=== PATIENT | female | born 1930 | race Caucasian/White ===

== ENCOUNTER 2017-03-25 11:39 | Inpatient (IN) | payer MEDICARE, MEDICAID ==
[~2017-03-25] VITALS: Ht 167.6 cm; Wt 86.2 kg
[~2017-03-25 11:39] MED LIST: AMIODARONE HCL400 M1 ORAL; ASPIR-LOW81 MG PO; DIOVAN80 MG PO; FOLIC ACID1 MG PO; GLUCOPHAGE500 MG PO; KLONOPIN0.5 MG ORAL; LANOXIN125 MCG PO; METOLAZONE2.5 MG PO; METOPROLOL TART50 M1 ORAL; NIACIN100 MG PO; NORVASC5 MG PO; PRADAXA150 MG PO; TENORMIN25 MG PO; ZETIA10 MG PO
--- NOTE | 2017-03-25 11:53 | Emergency Room Report ---
History of Present Illness General Chief Complaint: Generalized Weakness Source: Patient, EMS Present Illness HPI Patient is a 87-year-old female brought in by EMS after increased generalized weakness. The patient gradual onset of symptoms. She had recently been started on medications after flulike episode. Patient reports having prior history of heart palpitations. She had prior history of atrial fibrillation. She denies any fever . She reports being followed by Dr. Haleigh Bonner and Dr. Walter Ndiaye. Allergies: Coded Allergies: No Known Allergies (Unverified , 05/28/12) Patient History Past Medical History: see triage record Reviewed Nursing Documentation: PMH: Agreed, PSxH: Agreed Nursing Documentation-PMH Hx Cardiac Problems: Yes - "Arrhythmia"; high cholesterol Hx Hypertension: Yes Hx Diabetes: Yes - non insulin dependent Hx Cancer: No Hx Gastrointestinal Problems: No Hx Neurological Problems: No Hx Weakness: Yes Review of Systems All Other Systems: negative except mentioned in HPI Physical Exam Vital Signs Date Time Temp Pulse Resp B/P (MAP) Pulse Ox O2 Delivery O2 Flow Rate FiO2 03/25/17 11:34 98.4 59 16 163/56 95 Room Air Sp02 EP Interpretation: reviewed, normal General Appearance: normal inspection, well appearing, no apparent distress, alert, GCS 15, obese Head: atraumatic ENT: normal ENT inspection, hearing grossly normal, normal voice Neck: normal inspection, full range of motion, supple, no bony tend Respiratory: normal inspection, lungs clear, normal breath sounds, no respiratory distress, no retraction, no wheezing Cardiovascular #1: regular rate, rhythm, no edema Gastrointestinal: normal inspection, normal bowel sounds, non tender, soft, no guarding, no hernia Genitourinary: no CVA tenderness Musculoskeletal: normal inspection, back normal, normal range of motion Neurologic: normal inspection, alert, oriented x3, responsive, product marketing coordinator III-XII nml as tested, speech normal Psychiatric: normal inspection, judgement/insight normal, mood/affect normal Skin: normal inspection, normal color, no rash Medical Decision Making Diagnostic Impression: Primary Impression: CHF exacerbation Additional Impressions: Urinary tract infection Hyponatremia Bigeminy ER Course Patient is an 87-year-old female who presented after increased generalized weakness. Differential diagnosis included was not limited to anemia, urinary tract infection, electrolyte abnormality, hypothyroidism, myocardial infarction , myasthenia gravis, dehydration, among others. Because of complexity of patient's case laboratory testing and imaging studies were ordered. Cxr 1 view interpreted by me showed normal cardiac size with small left pleural effusion. Urinalysis showed evidence of urinary infection. Patient was noted to be hyponatremic. Dr. Velasquez was contacted for inpatient management after discussion with PMD. Labs Test 03/25/17 12:10 03/25/17 12:20 White Blood Count 11.0 K/UL (4.8-10.8) Red Blood Count 5.65 M/UL (4.20-5.40) Hemoglobin 15.5 G/DL (12.0-16.0) Hematocrit 48.5 % (37.0-47.0) Mean Corpuscular Volume 86 FL (80-99) Mean Corpuscular Hemoglobin 27.5 PG (27.0-31.0) Mean Corpuscular Hemoglobin Concent 32.0 G/DL (32.0-36.0) Red Cell Distribution Width 13.2 % (11.6-14.8) Platelet Count 196 K/UL (150-450) Mean Platelet Volume 8.1 FL (6.5-10.1) Neutrophils (%) (Auto) 51.7 % (45.0-75.0) Lymphocytes (%) (Auto) 38.9 % (20.0-45.0) Monocytes (%) (Auto) 8.0 % (1.0-10.0) Eosinophils (%) (Auto) 0.8 % (0.0-3.0) Basophils (%) (Auto) 0.6 % (0.0-2.0) Prothrombin Time 11.6 SEC (9.30-11.50) Prothromb Time International Ratio 1.1 (0.9-1.1) Activated Partial Thromboplast Time 36 SEC (23-33) Sodium Level 128 MMOL/L (136-145) Potassium Level 3.6 MMOL/L (3.5-5.1) Chloride Level 89 MMOL/L (98-107) Carbon Dioxide Level 30 MMOL/L (21-32) Anion Gap 9 mmol/L (5-15) Blood Urea Nitrogen 10 mg/dL (7-18) Creatinine 0.7 MG/DL (0.55-1.30) Estimat Glomerular Filtration Rate mL/min (>60) Glucose Level 116 MG/DL (74-106) Calcium Level 10.0 MG/DL (8.5-10.1) Total Bilirubin 0.7 MG/DL (0.2-1.0) Aspartate Amino Transf (AST/SGOT) 23 U/L (15-37) Alanine Aminotransferase (ALT/SGPT) 27 U/L (12-78) Alkaline Phosphatase 61 U/L (46-116) Troponin I 0.140 ng/mL (0.000-0.056) Total Protein 8.3 G/DL (6.4-8.2) Albumin 4.0 G/DL (3.4-5.0) Globulin 4.3 g/dL Albumin/Globulin Ratio 0.9 (1.0-2.7) Lipase 117 U/L (73-393) Urine Color Pale yellow Urine Appearance Clear Urine pH 7 (4.5-8.0) Urine Specific [place] 1.005 (1.005-1.035) Urine Protein 2+ (NEGATIVE) Urine Glucose (UA) Negative (NEGATIVE) Urine Ketones Negative (NEGATIVE) Urine Occult Blood 1+ (NEGATIVE) Urine Nitrite Negative (NEGATIVE) Urine Bilirubin Negative (NEGATIVE) Urine Urobilinogen Normal MG/DL (0.0-1.0) Urine Leukocyte Esterase 1+ (NEGATIVE) Urine RBC 2-4 /HPF (0 - 2) Urine WBC 2-4 /HPF (0 - 2) Urine Squamous Epithelial Cells Few /LPF (NONE/OCC) Urine Bacteria Occasional /HPF (NONE) EKG Diagnostic Results Rate: normal Rhythm: other - bigeminy Rhythm Strip Diag. Results EP Interpretation: yes Rhythm: no PVC's, other - frequent pvcs Last Vital Signs Date Time Temp Pulse Resp B/P (MAP) Pulse Ox O2 Delivery O2 Flow Rate FiO2 03/25/17 11:34 98.4 59 16 163/56 95 Room Air Status: unchanged Disposition: ADMITTED INPATIENT Condition: Serious Philip Mishra Mar 25, 2017 11:53
[2017-03-25 12:00] VITALS: BP 131/68
[2017-03-25 12:40] LABS: BASOPHILS % (AUTO) 0.6 % (0.0-2.0); EOSINOPHILS % (AUTO) 0.8 % (0.0-3.0); LYMPHOCYTES % (AUTO) 38.9 % (20.0-45.0); MEAN CORPUSCULAR HEMOGLOBIN 27.5 PG (27.0-31.0); MEAN CORPUSCULAR VOLUME 86 FL (80-99); MEAN PLATELET VOLUME 8.1 FL (6.5-10.1); NEUTROPHILS % (AUTO) 51.7 % (45.0-75.0); PLATELET COUNT 196 K/UL (150-450); RED BLOOD COUNT 5.65 M/UL (4.20-5.40); RED CELL DISTRIBUTION WIDTH 13.2 % (11.6-14.8)
[2017-03-25 12:44] LABS: APPEARANCE,URINE CLEAR; KETONES,URINE NEGATIVE (NEGATIVE); LEUKOCYTE ESTERASE ,URINE 1+ (NEGATIVE); NITRITE,URINE NEGATIVE (NEGATIVE); PH,URINE 7 (4.5-8.0); PROTEIN,URINE 2+ (NEGATIVE); UROBILINOGEN,URINE NORMAL MG/DL (0.0-1.0)
[2017-03-25 12:46] LABS: ANION GAP 9 mmol/L (5-15); CARBON DIOXIDE 30 MMOL/L (21-32); CHLORIDE 89 MMOL/L (98-107); CREATININE 0.7 MG/DL (0.55-1.30); INR 1.1 (0.9-1.1); POTASSIUM 3.6 MMOL/L (3.5-5.1); PROTHROMBIN TIME 11.6 SEC (9.30-11.50); SODIUM 128 MMOL/L (136-145)
[2017-03-25 12:51] LABS: ALANINE AMINOTRANSFERASE 27 U/L (12-78); ALBUMIN/GLOBULIN RATIO 0.9 (1.0-2.7); ASPARTATE AMINO TRANSFERASE 23 U/L (15-37); LIPASE 117 U/L (73-393); TOTAL PROTEIN 8.3 G/DL (6.4-8.2)
[2017-03-25 13:00] LABS: BACTERIA,URINE OCCASIONAL /HPF; SQUAMOUS EPITHELIAL CELL,UR FEW /LPF (NONE/OCC)
[2017-03-25] MEDS ORDERED: cefTRIAXone 1 GM in NS 55 ML IVPB ONE (13:30)
--- NOTE | 2017-03-25 13:31 | Diagnostic Imaging Report ---
Indication: Pain Technique: XRAY Chest 1v Comparison: 10/07/2014 Findings: Low lung volumes artifactually exaggerate heart size and vascular markings. Heart appears borderline enlarged. Atherosclerotic calcifications noted in the aortic arch. Haziness of the left lower lung likely related to attenuation from overlying breast tissue. No definite focal consolidation seen. There is slight prominence of the pulmonary vascularity. No large pleural effusion. No pneumothorax. Impression: Question mild cardiomegaly and pulmonary vascular congestion, these findings may be exaggerated by low lung volumes. Haziness of the left lower lung be related to attenuation from overlying breast tissue. No definite focal consolidation seen.
[2017-03-25 13:36] VITALS: BP 120/70
[2017-03-25] MEDS ORDERED: XARELTO10 MG ORAL (14:19)
[2017-03-25] MEDS ORDERED: AMIODARONE HCL400 M1 ORAL (14:19)
[2017-03-25] MEDS ORDERED: DIGOXIN125 MCG ORAL (14:19)
[2017-03-25] MEDS ORDERED: METOLAZONE5 MG PO (14:19)
[2017-03-25] MEDS ORDERED: LEVOTHYROXINE25 MCG ORAL (14:19)
[2017-03-25] MEDS ORDERED: METOPROLOL TAR100 M1 ORAL (14:19)
[2017-03-25] MEDS ORDERED: DIOVAN40 MG ORAL (15:51)
[2017-03-25] MEDS ORDERED: ZAROXOLYN2.5 MG ORAL (15:52)
[2017-03-25 15:56] VITALS: BP 157/109
[2017-03-25] MEDS ORDERED: Acetaminophen 500mg (ES) tab ORAL PRN (16:00)
[2017-03-25] MEDS ORDERED: NACL 3% IV ONE ×2 (16:00→17:00)
[2017-03-25 16:24] LABS: BASOPHILS % (AUTO) 0.8 % (0.0-2.0); EOSINOPHILS % (AUTO) 0.5 % (0.0-3.0); LYMPHOCYTES % (AUTO) 45.5 % (20.0-45.0); MEAN CORPUSCULAR HEMOGLOBIN 26.6 PG (27.0-31.0); MEAN CORPUSCULAR HGB CONC 31.6 G/DL (32.0-36.0); MEAN CORPUSCULAR VOLUME 84 FL (80-99); MONOCYTES % (AUTO) 6.7 % (1.0-10.0); NEUTROPHILS % (AUTO) 46.4 % (45.0-75.0); PLATELET COUNT 198 K/UL (150-450); RED BLOOD COUNT 5.54 M/UL (4.20-5.40); RED CELL DISTRIBUTION WIDTH 12.2 % (11.6-14.8); WHITE BLOOD COUNT 11.6 K/UL (4.8-10.8)
[2017-03-25] MEDS: NovoLOG Insulin Flexpen SUBQ SCH ×3 (16:30→20:23)
[2017-03-25] MEDS ORDERED: Digoxin 0.125mg tab ORAL SCH (17:00)
[2017-03-25] MEDS ORDERED: Irbesartan 150mg tablet ORAL SCH (17:00)
[2017-03-25] MEDS ORDERED: Miralax 17gm pkt ORAL PRN (17:00)
[2017-03-25 17:06] LABS: ANION GAP 9 mmol/L (5-15); CALCIUM 9.6 MG/DL (8.5-10.1); CARBON DIOXIDE 30 MMOL/L (21-32); CHLORIDE 90 MMOL/L (98-107); CREATININE 0.8 MG/DL (0.55-1.30); POTASSIUM 3.8 MMOL/L (3.5-5.1); SODIUM 129 MMOL/L (136-145)
--- NOTE | 2017-03-25 19:02 | Cardiology Progress Note ---
Assessment/Plan Assessment/Plan The patient is seen and examined, full consult note is dictated. Objective Last 24 Hour Vital Signs Date Time Temp Pulse Resp B/P (MAP) Pulse Ox O2 Delivery O2 Flow Rate FiO2 03/25/17 17:15 73 03/25/17 17:00 73 03/25/17 16:54 98.0 72 16 120/70 98 Room Air 03/25/17 15:56 96.8 102 20 157/109 94 Room Air 03/25/17 13:36 98.0 72 16 120/70 98 03/25/17 12:00 73 17 131/68 97 Room Air 03/25/17 11:34 98.4 59 16 163/56 95 Room Air Intake and Output 03/25/17 03/26/17 19:00 07:00 Intake Total 155 ml Balance 155 ml Intake IV Total 155 ml # Voids 1 Laboratory Tests Test 03/25/17 12:10 03/25/17 12:20 03/25/17 16:00 White Blood Count 11.0 K/UL (4.8-10.8) H 11.6 K/UL (4.8-10.8) H Red Blood Count 5.65 M/UL (4.20-5.40) H 5.54 M/UL (4.20-5.40) H Hemoglobin 15.5 G/DL (12.0-16.0) 14.7 G/DL (12.0-16.0) Hematocrit 48.5 % (37.0-47.0) H 46.6 % (37.0-47.0) Mean Corpuscular Volume 86 FL (80-99) 84 FL (80-99) Mean Corpuscular Hemoglobin 27.5 PG (27.0-31.0) 26.6 PG (27.0-31.0) L Mean Corpuscular Hemoglobin Concent 32.0 G/DL (32.0-36.0) 31.6 G/DL (32.0-36.0) L Red Cell Distribution Width 13.2 % (11.6-14.8) 12.2 % (11.6-14.8) Platelet Count 196 K/UL (150-450) 198 K/UL (150-450) Mean Platelet Volume 8.1 FL (6.5-10.1) 7.0 FL (6.5-10.1) Neutrophils (%) (Auto) 51.7 % (45.0-75.0) 46.4 % (45.0-75.0) Lymphocytes (%) (Auto) 38.9 % (20.0-45.0) 45.5 % (20.0-45.0) H Monocytes (%) (Auto) 8.0 % (1.0-10.0) 6.7 % (1.0-10.0) Eosinophils (%) (Auto) 0.8 % (0.0-3.0) 0.5 % (0.0-3.0) Basophils (%) (Auto) 0.6 % (0.0-2.0) 0.8 % (0.0-2.0) Prothrombin Time 11.6 SEC (9.30-11.50) H Prothromb Time International Ratio 1.1 (0.9-1.1) Activated Partial Thromboplast Time 36 SEC (23-33) H Sodium Level 128 MMOL/L (136-145) L 129 MMOL/L (136-145) L Potassium Level 3.6 MMOL/L (3.5-5.1) 3.8 MMOL/L (3.5-5.1) Chloride Level 89 MMOL/L (98-107) L 90 MMOL/L (98-107) L Carbon Dioxide Level 30 MMOL/L (21-32) 30 MMOL/L (21-32) Anion Gap 9 mmol/L (5-15) 9 mmol/L (5-15) Blood Urea Nitrogen 10 mg/dL (7-18) 8 mg/dL (7-18) Creatinine 0.7 MG/DL (0.55-1.30) 0.8 MG/DL (0.55-1.30) Estimat Glomerular Filtration Rate mL/min (>60) mL/min (>60) Glucose Level 116 MG/DL (74-106) H 110 MG/DL (74-106) H Calcium Level 10.0 MG/DL (8.5-10.1) 9.6 MG/DL (8.5-10.1) Total Bilirubin 0.7 MG/DL (0.2-1.0) Aspartate Amino Transf (AST/SGOT) 23 U/L (15-37) Alanine Aminotransferase (ALT/SGPT) 27 U/L (12-78) Alkaline Phosphatase 61 U/L (46-116) Troponin I 0.140 ng/mL (0.000-0.056) Total Protein 8.3 G/DL (6.4-8.2) H Albumin 4.0 G/DL (3.4-5.0) Globulin 4.3 g/dL Albumin/Globulin Ratio 0.9 (1.0-2.7) L Lipase 117 U/L (73-393) Urine Color Pale yellow Urine Appearance Clear Urine pH 7 (4.5-8.0) Urine Specific [place] 1.005 (1.005-1.035) Urine Protein 2+ (NEGATIVE) H Urine Glucose (UA) Negative (NEGATIVE) Urine Ketones Negative (NEGATIVE) Urine Occult Blood 1+ (NEGATIVE) H Urine Nitrite Negative (NEGATIVE) Urine Bilirubin Negative (NEGATIVE) Urine Urobilinogen Normal MG/DL (0.0-1.0) Urine Leukocyte Esterase 1+ (NEGATIVE) H Urine RBC 2-4 /HPF (0 - 2) H Urine WBC 2-4 /HPF (0 - 2) Urine Squamous Epithelial Cells Few /LPF (NONE/OCC) Urine Bacteria Occasional /HPF (NONE) Microbiology Date/Time Source Procedure Growth Status 03/25/17 13:22 Nasal Nares Influenza Types A,B Antigen (TESSA) - Final Complete MARYLIN HANSEN Mar 25, 2017 19:02
[2017-03-25 20:00] VITALS: BP 136/74
[2017-03-25] MEDS: Metoprolol Tartrate 50mg tab ORAL SCH (20:14)
[2017-03-25] MEDS: Xarelto 10mg tab ORAL SCH (20:15)
[2017-03-25] MEDS ORDERED: Enoxaparin 30mg Inj SUBQ SCH (21:00)
[2017-03-25] MEDS ORDERED: clonazePAM 0.5mg tab ORAL PRN (21:00)
[2017-03-26] VITALS: BP 153/77
--- NOTE | 2017-03-26 01:00 | Consultation ---
DATE OF CONSULTATION: 03/25/2017 CARDIOLOGY CONSULTATION CONSULTING PHYSICIAN: Walter Wray M.D. REFERRING PHYSICIAN: Trista Velasquez M.D. This is a Cardiology consultation on behalf of Dr. Ndiaye. REASON FOR CONSULTATION: Management of ventricular premature complexes. HISTORY OF PRESENT ILLNESS: The patient is a very unfortunate 87-year-old [place] Islander speaking lady, who is brought in by EMS for evaluation and management of increased generalized weakness. The patient also complains of palpitations. According to the records, there is history of atrial fibrillation and the patient is on amiodarone and Xarelto for this treatment. At the time of arrival to the emergency department, initial blood pressure was 163/53 mmHg. A 12-lead electrocardiogram showed ventricular premature complexes in the bigeminy form. There were no ST and T-wave abnormalities. There were some equivocal ST-segment depressions in the inferior and lateral wall leads. The patient did not however complain of chest pain. She was admitted to the [facility] for further evaluation of the above condition. PAST MEDICAL HISTORY: 1. Paroxysmal atrial fibrillation, on amiodarone, digoxin, metoprolol, and Xarelto. 2. History of diabetes mellitus. 3. History of hypertension. MEDICATIONS: List of medications, amiodarone 100 mg q.12 h., digoxin 125 mcg p.o. daily, Zetia 10 mg p.o. daily, levothyroxine 50 mcg p.o. daily, metolazone 5 mg p.o. daily, metoprolol 100 mg p.o. twice daily, Xarelto 10 mg p.o. daily, and valsartan 80 mg p.o. twice daily. ALLERGIES: No known drug allergies. SOCIAL HISTORY: Denies any tobacco, alcohol, or illicit drug use. FAMILY HISTORY: No premature coronary artery disease in first-degree relative. REVIEW OF SYSTEMS: HEENT: Denies any headache, diplopia, or blurred vision. CONSTITUTIONAL: She complains of generalized weakness, but no fever, chills, or night sweats. CARDIOVASCULAR: Complains of palpitations, but no chest pain or shortness of breath. Denies any syncope. PULMONARY: Denies any cough, hemoptysis, or wheezing. GASTROINTESTINAL: Denies any nausea, vomiting, diarrhea, constipation, abdominal pain, or GI bleed. GENITOURINARY: Denies any hematuria, dysuria, or incontinence. NEUROLOGIC: Denies any motor dysfunction, sensory deficit, or altered speech. PHYSICAL EXAMINATION: VITAL SIGNS: Blood pressure is 163/56, respirations 16, pulse of 59, temperature 98.4 degrees Fahrenheit, and O2 saturation 95% on room air. GENERAL: The patient is a very pleasant 87-year-old [place]er female, who is speaking Spanish well, capable of communicating with me, no apparent respiratory distress. Alert and oriented x4. HEENT: Atraumatic and normocephalic. Anicteric. Pupils are equal, round, and reactive to light and accommodation. Extraocular muscles intact. NECK: JVP less than 5 cm. No carotid bruit. Carotid upstrokes 2+ bilaterally. CVS: Normal S1 and S2. Regular rate and rhythm. No murmurs, gallops, or rubs. PMI is at fourth intercostal space in the midclavicular line. LUNGS: Clear to auscultation bilaterally. ABDOMEN: Soft, nontender, and nondistended. No hepatosplenomegaly. Positive bowel sounds. EXTREMITIES: No evidence of edema, clubbing, or cyanosis. LABORATORY AND DIAGNOSTIC DATA: Laboratory findings, WBC 11.0, hemoglobin of 15.5, hematocrit of 48.5, and platelet count is 196,000. Sodium was 128, potassium is 3.6, chloride 89, bicarbonate 30, BUN of 10, creatinine 0.7, glucose is 116, and calcium is 10.0. Troponin I is 0.140. INR is 1.1. Chest x-ray showed mild cardiomegaly, pulmonary vascular congestion, low lung volumes, haziness of the left lower lung may be due to attenuation with overlying breast tissue, questionable for effusion. ASSESSMENT AND PLAN: The patient is a very unfortunate 87-year-old female, seen in Cardiology consultation at the request of Dr. Velasquez. 1. Paroxysmal atrial fibrillation, currently in sinus rhythm. The patient's creatinine is within normal limits. Weight above 60 kilos. She is automatically qualified for 20 mg of Xarelto daily. 2. Ventricular premature complexes in the bigeminy form. I would like to check the magnesium level. A 2 gram magnesium will be given empirically. We will check the magnesium level in the morning. 3. A 2D echocardiography will be done to assess left ventricular systolic and diastolic function. 4. Slight elevation of troponin I level, could be secondary to underlying ventricular premature complexes in the form of bigeminy, although I cannot rule out demand ischemia and non-ST elevation myocardial function. Serial troponin I level will be done. The patient is currently chest pain free, although there are some equivocal changes on the ST-segment. 5. We will repeat the 12-lead electrocardiogram in the morning. The patient is on oral anticoagulation therapy. I would like to thank, Dr. Velasquez for the courtesy of this consultation. Walter Wray M.D. DR: Hilda JOB#: [id number] CC:
[2017-03-26 04:00] VITALS: BP 126/66
[2017-03-26 08:00] VITALS: BP 134/67
[2017-03-26] MEDS ORDERED: Irbesartan 150mg tablet ORAL SCH (09:00)
[2017-03-26] MEDS ORDERED: Digoxin 0.125mg tab ORAL SCH (09:00)
[2017-03-26] MEDS ORDERED: Xarelto 10mg tab ORAL SCH (09:00)
[2017-03-26] MEDS: Metoprolol Tartrate 50mg tab ORAL SCH ×2 (10:37→21:00)
[2017-03-26 12:00] VITALS: BP 146/75
--- NOTE | 2017-03-26 14:04 | General Progress Note ---
Subjective Constitutional: Reports: no symptoms HEENT: Reports: no symptoms Cardiovascular: Reports: other - No chest pain or palpitation, Respiratory: Reports: no symptoms Gastrointestinal/Abdominal: Reports: no symptoms Genitourinary: Reports: no symptoms Neurologic/Psychiatric: Reports: no symptoms Endocrine: Reports: no symptoms Hematologic/Lymphatic: Reports: no symptoms Allergies: Coded Allergies: No Known Allergies (Unverified , 05/28/12) Objective Last 24 Hour Vital Signs Date Time Temp Pulse Resp B/P (MAP) Pulse Ox O2 Delivery O2 Flow Rate FiO2 03/26/17 12:00 65 03/26/17 12:00 97.2 54 19 146/75 97 03/26/17 10:37 97 134/67 03/26/17 10:37 134/67 03/26/17 10:37 97 134/67 03/26/17 08:00 97.9 97 16 134/67 97 03/26/17 08:00 52 03/26/17 04:00 97.0 60 16 126/66 93 03/26/17 04:00 48 03/26/17 00:00 97.0 56 20 153/77 90 Room Air 03/26/17 00:00 47 03/25/17 20:14 73 138/76 03/25/17 20:00 69 03/25/17 20:00 98.0 69 20 136/74 98 Room Air 03/25/17 17:15 73 03/25/17 17:00 73 03/25/17 16:54 98.0 72 16 120/70 98 Room Air 03/25/17 15:56 96.8 102 20 157/109 94 Room Air Laboratory Tests 03/25/17 16:00: White Blood Count 11.6H, Red Blood Count 5.54H, Hemoglobin 14.7, Hematocrit 46.6 , Mean Corpuscular Volume 84, Mean Corpuscular Hemoglobin 26.6L, Mean Corpuscular Hemoglobin Concent 31.6L, Red Cell Distribution Width 12.2, Platelet Count 198, Mean Platelet Volume 7.0, Neutrophils (%) (Auto) 46.4, Lymphocytes (%) (Auto) 45.5H, Monocytes (%) (Auto) 6.7, Eosinophils (%) (Auto) 0.5, Basophils (%) (Auto) 0.8, Sodium Level 129L, Potassium Level 3.8, Chloride Level 90L, Carbon Dioxide Level 30, Anion Gap 9, Blood Urea Nitrogen 8, Creatinine 0.8, Estimat Glomerular Filtration Rate , Glucose Level 110H, Calcium Level 9.6 03/26/17 07:20: Magnesium Level 1.7L, Troponin I 0.126H, Digoxin Level 0.4L Height (Feet): 5 Height (Inches): 6.00 Weight (Pounds): 190 SANTOS LINDA Mar 26, 2017 14:03
--- NOTE | 2017-03-26 14:18 | General Progress Note ---
Subjective Allergies: Coded Allergies: No Known Allergies (Unverified , 05/28/12) Objective Last 24 Hour Vital Signs Date Time Temp Pulse Resp B/P (MAP) Pulse Ox O2 Delivery O2 Flow Rate FiO2 03/26/17 12:00 65 03/26/17 12:00 97.2 54 19 146/75 97 03/26/17 10:37 97 134/67 03/26/17 10:37 134/67 03/26/17 10:37 97 134/67 03/26/17 08:00 97.9 97 16 134/67 97 03/26/17 08:00 52 03/26/17 04:00 97.0 60 16 126/66 93 03/26/17 04:00 48 03/26/17 00:00 97.0 56 20 153/77 90 Room Air 03/26/17 00:00 47 03/25/17 20:14 73 138/76 03/25/17 20:00 69 03/25/17 20:00 98.0 69 20 136/74 98 Room Air 03/25/17 17:15 73 03/25/17 17:00 73 03/25/17 16:54 98.0 72 16 120/70 98 Room Air 03/25/17 15:56 96.8 102 20 157/109 94 Room Air Laboratory Tests 03/25/17 16:00: White Blood Count 11.6H, Red Blood Count 5.54H, Hemoglobin 14.7, Hematocrit 46.6 , Mean Corpuscular Volume 84, Mean Corpuscular Hemoglobin 26.6L, Mean Corpuscular Hemoglobin Concent 31.6L, Red Cell Distribution Width 12.2, Platelet Count 198, Mean Platelet Volume 7.0, Neutrophils (%) (Auto) 46.4, Lymphocytes (%) (Auto) 45.5H, Monocytes (%) (Auto) 6.7, Eosinophils (%) (Auto) 0.5, Basophils (%) (Auto) 0.8, Sodium Level 129L, Potassium Level 3.8, Chloride Level 90L, Carbon Dioxide Level 30, Anion Gap 9, Blood Urea Nitrogen 8, Creatinine 0.8, Estimat Glomerular Filtration Rate , Glucose Level 110H, Calcium Level 9.6 03/26/17 07:20: Magnesium Level 1.7L, Troponin I 0.126H, Digoxin Level 0.4L Height (Feet): 5 Height (Inches): 6.00 Weight (Pounds): 190 General Appearance: no apparent distress, alert EENT: PERRL/EOMI, normal ENT inspection, TMs normal, pharynx normal Neck: non-tender, supple, normal inspection Cardiovascular: bradycardia Respiratory/Chest: lungs clear, normal breath sounds, no respiratory distress Abdomen: normal bowel sounds, non tender, soft, no organomegaly, no mass Pelvis: no masses Extremities: non-tender, normal inspection, no calf tenderness, other - Troponin elev.Na !@(, Mg1.9 Dig 0.4.Will get cardiology consult'. up lab. hysical therapy, Edema: no edema noted Arm (L), no edema noted Arm (R), no edema noted Leg (L), no edema noted Leg (R), no edema noted Pedal (L), no edema noted Pedal (R), no edema noted Generalized Neurologic: trade manager II-XII grossly normal, alert, oriented x 3, responsive, normal mood/affect Skin: normal pigmentation, warm/dry Lymphatic: normal anterior cervical (L), normal anterior cervical (R), normal posterior cervical (L), normal posterior cervical (R), normal submandibular (L) , normal submandibular (R), normal supraclavicular (L), normal supraclavicular ( R), normal axillary (L), normal axillary (R), normal inguinal (L), normal inguinal (R), normal other SANTOS LINDA Mar 26, 2017 14:18
[2017-03-26] MEDS: cefTRIAXone 1 GM in D5W 55 ML IVPB SCH (14:22)
[2017-03-26 16:00] VITALS: BP 144/66
[2017-03-26] MEDS: Magnesium Citrate Liq Btl ORAL SCH (17:52)
[2017-03-26] MEDS ORDERED: NACL 3% IV ONE (18:00)
--- NOTE | 2017-03-26 19:27 | Cardiology Progress Note ---
Assessment/Plan Assessment/Plan 1. Paroxysmal atrial fibrillation, currently in sinus rhythm, continue Xarelto 20 daily. 2. Ventricular premature complexes in the bigeminy form, reduced in number, magnesium was given, Mg level at 1.9. Will give another 2 grams. Echo reveals normal LVEF (60%) 3. Slight elevation of troponin I level, ? demand ischemia/non-ST elevation myocardial function, currently CP free. 12 lead ECG shows NS STT changes not compatible with ischemia. Will continue medical therapy. Subjective Cardiovascular: Reports: no symptoms Respiratory: Reports: no symptoms Gastrointestinal/Abdominal: Reports: no symptoms Genitourinary: Reports: no symptoms Subjective Sinus bradycardia at 58, single VPCs. Objective Last 24 Hour Vital Signs Date Time Temp Pulse Resp B/P (MAP) Pulse Ox O2 Delivery O2 Flow Rate FiO2 03/26/17 16:00 52 03/26/17 16:00 97.7 52 19 144/66 97 03/26/17 12:00 65 03/26/17 12:00 97.2 54 19 146/75 97 03/26/17 10:37 97 134/67 03/26/17 10:37 134/67 03/26/17 10:37 97 134/67 03/26/17 08:00 97.9 97 16 134/67 97 03/26/17 08:00 52 03/26/17 04:00 97.0 60 16 126/66 93 03/26/17 04:00 48 03/26/17 00:00 97.0 56 20 153/77 90 Room Air 03/26/17 00:00 47 03/25/17 20:14 73 138/76 03/25/17 20:00 69 03/25/17 20:00 98.0 69 20 136/74 98 Room Air Intake and Output 03/26/17 03/27/17 19:00 07:00 # Voids 2 2D Echo: LVEF 60%, RVSP 30mmHg, Mild MR/AR, Grade I LVDD Laboratory Tests Test 03/26/17 07:20 03/26/17 15:25 Magnesium Level 1.7 MG/DL (1.8-2.4) L Troponin I 0.126 ng/mL (0.000-0.056) 0.077 ng/mL (0.000-0.056) Digoxin Level 0.4 NG/ML (0.9-2.0) L Sodium Level 132 MMOL/L (136-145) L Microbiology Date/Time Source Procedure Growth Status 03/25/17 13:22 Nasal Nares Influenza Types A,B Antigen (TESSA) - Final Complete Objective GENERAL: The patient is a very pleasant 87-year-old Monegasque female, who is speaking Bangladeshi well, capable of communicating with me, no apparent respiratory distress. Alert and oriented x4. HEENT: Atraumatic and normocephalic. Anicteric. Pupils are equal, round, and reactive to light and accommodation. Extraocular muscles intact. NECK: JVP less than 5 cm. No carotid bruit. Carotid upstrokes 2+ bilaterally. CVS: Normal S1 and S2. Regular rate and rhythm. No murmurs, gallops, or rubs. PMI is at fourth intercostal space in the midclavicular line. LUNGS: Clear to auscultation bilaterally. ABDOMEN: Soft, nontender, and nondistended. No hepatosplenomegaly. Positive bowel sounds. EXTREMITIES: No evidence of edema, clubbing, or cyanosis. MARYLIN HANSEN Mar 26, 2017 19:27
[2017-03-26 20:25] VITALS: BP 141/76
[2017-03-26] MEDS: Xarelto 10mg tab ORAL SCH (22:32)
[2017-03-27 00:10] VITALS: BP 138/80
[2017-03-27 04:00] VITALS: BP 144/77
[2017-03-27 08:00] VITALS: BP 130/75
--- NOTE | 2017-03-27 08:00 | History and Physical Report ---
DATE OF ADMISSION: 03/25/2017 REASON FOR ADMISSION: The patient is an 87-year-old female, who was brought to the emergency room at [facility] complaining of general fatigue and severe palpitation and chest discomfort. The patient was evaluated in the emergency room. She has chronic atrial fibrillation and elevation of the troponin level. The patient also has mild urinary tract infection and admitted to monitored bed TI at [facility]. The patient is in bed, alert, 87-year-old female, looks younger for stated age. The patient is complaining of chest discomfort and palpitation. PAST MEDICAL HISTORY AND REVIEW OF SYSTEMS: Remarkable for chronic atrial fibrillation. Denied history of MS. The patient has a history of hypertension, for cardiology problem. The patient has a history of hypothyroidism and had diabetes mellitus history of respiratory problems, asthma and bronchitis. GI, the patient has history of chronic constipation and occasional heartburn. About years ago, history of hepatitis . 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 No fractures. Neurologic, no history of stroke or seizures. No Parkinson disease. Psychiatric, fully alert and oriented to time and place. PAST SURGICAL HISTORY: Bilateral cataract surgery by years ago. ALLERGIES: Not known. HABITS: . MEDICATIONS: Levothyroxine 50 mcg daily, metformin, metoprolol, Diovan 160 mg daily, MiraLAX laxative daily, clonazepam 0.5 mg at bedtime for insomnia, Xarelto 10 mg daily, 2.5 mg daily. HABITS: Denies history of smoke or alcohol habit. PHYSICAL EXAMINATION: GENERAL: The patient is alert, well-developed, well-nourished elderly female in her 80s. No acute distress. VITAL SIGNS: Blood pressure 155/72, heart rate, atrial fibrillation, controlled rate of 75. HEENT: Head, normocephalic and atraumatic. Ears, clear, no discharge. Eyes, . No conjunctivitis. Nose, clear, no discharge. Mouth, clear and moist. Absence of bottom teeth. NECK: Supple. No jugular venous distention. Carotid artery +2. Trachea midline. CHEST: No deformity or asymmetry. LUNGS: Clear to auscultation and percussion. No rales or rhonchi. HEART: Atrial fibrillation. Heart sounds distant. No murmur. No S3 or S4. ABDOMEN: Soft . EXTREMITIES: Degenerative joint disease of the knee and varicose veins. No calf tenderness or thrombophlebitis. NEUROLOGIC: No asymmetry or tremor. PSYCHIATRIC: Fully alert and oriented to time and place. LABORATORY AND DIAGNOSTIC DATA: White blood cells 11,600, red blood cells 542,000, hemoglobin 14.7, hematocrit 46.5. Chemistry: Sodium 128, potassium 3.6, chloride 89, anion gap of 9, BUN 10, and creatinine 0.7. Troponin level elevated at 0.135. EKG: Atrial fibrillation, PACs, and nonspecific ST abnormality. Urine: Red blood cells 2 to 4 and white blood cells 2 to 4. Culture pending. Bacteria occasional. IMPRESSION: 1. Chest pain, currently atrial fibrillation. 2. History of hypertension, controlled. 3. Hyponatremia. 4. Elevation of troponin level. 5. Diabetes mellitus type 2. 6. Hypothyroidism. 7. Degenerative joint disease of the knee. 8. Varicose veins, lower extremities. 9. Chronic constipation. 10. History of insomnia. PLAN: Continue antibiotic Rocephin given in the ER 1 g daily. Follow lab work, sodium chloride mL of sodium chloride . Prognosis is guarded. Thank you very much . Trista Velasquez M.D. DR: LINUS JOB#: [id number] CC:
[2017-03-27 08:41] LABS: BASOPHILS % (AUTO) 0.7 % (0.0-2.0); LYMPHOCYTES % (AUTO) 44.9 % (20.0-45.0); MEAN CORPUSCULAR HEMOGLOBIN 28.1 PG (27.0-31.0); MEAN CORPUSCULAR HGB CONC 32.8 G/DL (32.0-36.0); MEAN CORPUSCULAR VOLUME 86 FL (80-99); MEAN PLATELET VOLUME 7.2 FL (6.5-10.1); MONOCYTES % (AUTO) 7.6 % (1.0-10.0); NEUTROPHILS % (AUTO) 45.8 % (45.0-75.0); PLATELET COUNT 191 K/UL (150-450); RED BLOOD COUNT 5.41 M/UL (4.20-5.40); RED CELL DISTRIBUTION WIDTH 13.3 % (11.6-14.8); WHITE BLOOD COUNT 8.6 K/UL (4.8-10.8)
[2017-03-27 08:48] LABS: ANION GAP 7 mmol/L (5-15); CARBON DIOXIDE 32 MMOL/L (21-32); CHLORIDE 99 MMOL/L (98-107); CREATININE 0.7 MG/DL (0.55-1.30); MAGNESIUM 1.8 MG/DL (1.8-2.4); POTASSIUM 3.4 MMOL/L (3.5-5.1); SODIUM 137 MMOL/L (136-145)
[2017-03-27] MEDS ORDERED: NaCl 3% 500ml 250 ML IVPB ONE (09:00)
[2017-03-27] MEDS ORDERED: Magnesium Citrate Liq Btl ORAL ONE (09:00)
[2017-03-27] MEDS: Magnesium Citrate Liq Btl ORAL SCH ×2 (09:00→17:29)
[2017-03-27] MEDS: Irbesartan 150mg tablet ORAL SCH (09:19)
[2017-03-27] MEDS: Metoprolol Tartrate 50mg tab ORAL SCH ×2 (09:20→22:07)
[2017-03-27 12:00] VITALS: BP 146/75
--- NOTE | 2017-03-27 13:35 | General Progress Note ---
Subjective Constitutional: Reports: no symptoms HEENT: Reports: no symptoms Cardiovascular: Reports: lightheadedness, palpitations Respiratory: Reports: no symptoms Gastrointestinal/Abdominal: Reports: constipated Neurologic/Psychiatric: Reports: no symptoms Endocrine: Reports: no symptoms Hematologic/Lymphatic: Reports: no symptoms Allergies: Coded Allergies: No Known Allergies (Unverified , 05/28/12) Objective Last 24 Hour Vital Signs Date Time Temp Pulse Resp B/P (MAP) Pulse Ox O2 Delivery O2 Flow Rate FiO2 03/27/17 12:00 96.8 54 19 146/75 97 Room Air 03/27/17 09:20 74 130/75 03/27/17 09:19 130/75 03/27/17 09:19 74 130/75 03/27/17 08:00 64 03/27/17 08:00 97.1 74 18 130/75 97 Room Air 03/27/17 04:00 61 03/27/17 04:00 98.0 60 20 144/77 95 Room Air 03/27/17 00:10 97.3 62 20 138/80 95 Room Air 03/27/17 00:00 53 03/26/17 21:00 59 141/76 03/26/17 20:25 97.3 59 20 141/76 95 Room Air 03/26/17 20:00 59 03/26/17 16:00 52 03/26/17 16:00 97.7 52 19 144/66 97 Laboratory Tests 03/26/17 15:25: Sodium Level 132L, Troponin I 0.077H 03/26/17 23:00: Troponin I 0.134H 03/27/17 07:35: Sodium Level 137, White Blood Count 8.6, Red Blood Count 5.41H, Hemoglobin 15.2 , Hematocrit 46.4, Mean Corpuscular Volume 86, Mean Corpuscular Hemoglobin 28.1 , Mean Corpuscular Hemoglobin Concent 32.8, Red Cell Distribution Width 13.3, Platelet Count 191, Mean Platelet Volume 7.2, Neutrophils (%) (Auto) 45.8, Lymphocytes (%) (Auto) 44.9, Monocytes (%) (Auto) 7.6, Eosinophils (%) (Auto) 1.0, Basophils (%) (Auto) 0.7, Potassium Level 3.4L, Chloride Level 99, Carbon Dioxide Level 32, Anion Gap 7, Blood Urea Nitrogen 7, Creatinine 0.7, Estimat Glomerular Filtration Rate , Glucose Level 122H, Calcium Level 9.0, Magnesium Level 1.8 Height (Feet): 5 Height (Inches): 6.00 Weight (Pounds): 190 SANTOS LINDA Mar 27, 2017 13:35
--- NOTE | 2017-03-27 13:42 | General Progress Note ---
Subjective Allergies: Coded Allergies: No Known Allergies (Unverified , 05/28/12) Objective Last 24 Hour Vital Signs Date Time Temp Pulse Resp B/P (MAP) Pulse Ox O2 Delivery O2 Flow Rate FiO2 03/27/17 12:00 96.8 54 19 146/75 97 Room Air 03/27/17 09:20 74 130/75 03/27/17 09:19 130/75 03/27/17 09:19 74 130/75 03/27/17 08:00 64 03/27/17 08:00 97.1 74 18 130/75 97 Room Air 03/27/17 04:00 61 03/27/17 04:00 98.0 60 20 144/77 95 Room Air 03/27/17 00:10 97.3 62 20 138/80 95 Room Air 03/27/17 00:00 53 03/26/17 21:00 59 141/76 03/26/17 20:25 97.3 59 20 141/76 95 Room Air 03/26/17 20:00 59 03/26/17 16:00 52 03/26/17 16:00 97.7 52 19 144/66 97 Laboratory Tests 03/26/17 15:25: Sodium Level 132L, Troponin I 0.077H 03/26/17 23:00: Troponin I 0.134H 03/27/17 07:35: Sodium Level 137, White Blood Count 8.6, Red Blood Count 5.41H, Hemoglobin 15.2 , Hematocrit 46.4, Mean Corpuscular Volume 86, Mean Corpuscular Hemoglobin 28.1 , Mean Corpuscular Hemoglobin Concent 32.8, Red Cell Distribution Width 13.3, Platelet Count 191, Mean Platelet Volume 7.2, Neutrophils (%) (Auto) 45.8, Lymphocytes (%) (Auto) 44.9, Monocytes (%) (Auto) 7.6, Eosinophils (%) (Auto) 1.0, Basophils (%) (Auto) 0.7, Potassium Level 3.4L, Chloride Level 99, Carbon Dioxide Level 32, Anion Gap 7, Blood Urea Nitrogen 7, Creatinine 0.7, Estimat Glomerular Filtration Rate , Glucose Level 122H, Calcium Level 9.0, Magnesium Level 1.8 Height (Feet): 5 Height (Inches): 6.00 Weight (Pounds): 190 General Appearance: no apparent distress, alert EENT: TMs normal Neck: normal alignment, supple, normal inspection Cardiovascular: normal peripheral pulses, normal rate, regular rhythm, no gallop/murmur, no JVD Respiratory/Chest: lungs clear, no respiratory distress Abdomen: normal bowel sounds, non tender, soft, no organomegaly Extremities: non-tender, no calf tenderness Edema: no edema noted Arm (L), no edema noted Arm (R), no edema noted Leg (L), no edema noted Leg (R), no edema noted Pedal (L), no edema noted Pedal (R), no edema noted Generalized 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
[2017-03-27] MEDS: cefTRIAXone 1 GM in D5W 55 ML IVPB SCH (14:00)
[2017-03-27 16:00] VITALS: BP 130/72
[2017-03-27 20:00] VITALS: BP 126/73
--- NOTE | 2017-03-27 21:11 | Cardiology Progress Note ---
Assessment/Plan Assessment/Plan 1. Paroxysmal atrial fibrillation, currently in sinus rhythm, continue Xarelto 20 daily. 2. Ventricular premature complexes in the bigeminy form, reduced in number, keep Mg level >1.9. Echo reveals normal LVEF (60%) 3. Slight elevation of troponin I level, ? demand ischemia/non-ST elevation myocardial function, currently CP free. 12 lead ECG shows NS STT changes not compatible with ischemia. Will continue medical therapy. Subjective Subjective Sinus bradycardia at 58, single VPCs. Objective Last 24 Hour Vital Signs Date Time Temp Pulse Resp B/P (MAP) Pulse Ox O2 Delivery O2 Flow Rate FiO2 03/27/17 16:00 56 03/27/17 16:00 97.7 52 18 130/72 94 Room Air 03/27/17 12:00 52 03/27/17 12:00 96.8 54 19 146/75 97 Room Air 03/27/17 09:20 74 130/75 03/27/17 09:19 130/75 03/27/17 09:19 74 130/75 03/27/17 08:00 64 03/27/17 08:00 97.1 74 18 130/75 97 Room Air 03/27/17 04:00 61 03/27/17 04:00 98.0 60 20 144/77 95 Room Air 03/27/17 00:10 97.3 62 20 138/80 95 Room Air 03/27/17 00:00 53 Intake and Output 03/27/17 03/28/17 19:00 07:00 Intake Total 527 ml Balance 527 ml Intake Oral 472 ml IV Total 55 ml # Voids 2 Laboratory Tests Test 03/26/17 23:00 03/27/17 07:35 Troponin I 0.134 ng/mL (0.000-0.056) White Blood Count 8.6 K/UL (4.8-10.8) Red Blood Count 5.41 M/UL (4.20-5.40) H Hemoglobin 15.2 G/DL (12.0-16.0) Hematocrit 46.4 % (37.0-47.0) Mean Corpuscular Volume 86 FL (80-99) Mean Corpuscular Hemoglobin 28.1 PG (27.0-31.0) Mean Corpuscular Hemoglobin Concent 32.8 G/DL (32.0-36.0) Red Cell Distribution Width 13.3 % (11.6-14.8) Platelet Count 191 K/UL (150-450) Mean Platelet Volume 7.2 FL (6.5-10.1) Neutrophils (%) (Auto) 45.8 % (45.0-75.0) Lymphocytes (%) (Auto) 44.9 % (20.0-45.0) Monocytes (%) (Auto) 7.6 % (1.0-10.0) Eosinophils (%) (Auto) 1.0 % (0.0-3.0) Basophils (%) (Auto) 0.7 % (0.0-2.0) Sodium Level 137 MMOL/L (136-145) Potassium Level 3.4 MMOL/L (3.5-5.1) L Chloride Level 99 MMOL/L (98-107) Carbon Dioxide Level 32 MMOL/L (21-32) Anion Gap 7 mmol/L (5-15) Blood Urea Nitrogen 7 mg/dL (7-18) Creatinine 0.7 MG/DL (0.55-1.30) Estimat Glomerular Filtration Rate mL/min (>60) Glucose Level 122 MG/DL (74-106) H Calcium Level 9.0 MG/DL (8.5-10.1) Magnesium Level 1.8 MG/DL (1.8-2.4) Microbiology Date/Time Source Procedure Growth Status 03/25/17 13:22 Nasal Nares Influenza Types A,B Antigen (TESSA) - Final Complete Objective GENERAL: The patient is a very pleasant 87-year-old [place] female, who is speaking Trinidadian well, capable of communicating with me, no apparent respiratory distress. Alert and oriented x4. HEENT: Atraumatic and normocephalic. Anicteric. Pupils are equal, round, and reactive to light and accommodation. Extraocular muscles intact. NECK: JVP less than 5 cm. No carotid bruit. Carotid upstrokes 2+ bilaterally. CVS: Normal S1 and S2. Regular rate and rhythm. No murmurs, gallops, or rubs. PMI is at fourth intercostal space in the midclavicular line. LUNGS: Clear to auscultation bilaterally. ABDOMEN: Soft, nontender, and nondistended. No hepatosplenomegaly. Positive bowel sounds. EXTREMITIES: No evidence of edema, clubbing, or cyanosis. MARYLIN HANSEN Mar 27, 2017 21:11
[2017-03-27] MEDS: Xarelto 10mg tab ORAL SCH (22:07)
[2017-03-28 00:10] VITALS: BP 124/58
[2017-03-28 04:25] VITALS: BP 116/60
--- NOTE | 2017-03-28 07:28 | General Progress Note ---
Subjective Constitutional: Reports: no symptoms HEENT: Reports: no symptoms Cardiovascular: Reports: no symptoms Respiratory: Reports: no symptoms Gastrointestinal/Abdominal: Reports: no symptoms Genitourinary: Reports: no symptoms Neurologic/Psychiatric: Reports: no symptoms Endocrine: Reports: no symptoms Hematologic/Lymphatic: Reports: no symptoms Allergies: Coded Allergies: No Known Allergies (Unverified , 05/28/12) Objective Last 24 Hour Vital Signs Date Time Temp Pulse Resp B/P (MAP) Pulse Ox O2 Delivery O2 Flow Rate FiO2 03/28/17 04:25 97.3 53 20 116/60 96 Room Air 03/28/17 04:00 48 03/28/17 02:34 47 03/28/17 00:10 97.0 51 20 124/58 95 Room Air 03/27/17 22:07 57 126/73 03/27/17 20:00 97.5 57 20 126/73 94 Room Air 03/27/17 20:00 47 03/27/17 16:00 56 03/27/17 16:00 97.7 52 18 130/72 94 Room Air 03/27/17 12:00 52 03/27/17 12:00 96.8 54 19 146/75 97 Room Air 03/27/17 09:20 74 130/75 03/27/17 09:19 130/75 03/27/17 09:19 74 130/75 03/27/17 08:00 64 03/27/17 08:00 97.1 74 18 130/75 97 Room Air Laboratory Tests 03/27/17 07:35: White Blood Count 8.6, Red Blood Count 5.41H, Hemoglobin 15.2, Hematocrit 46.4, Mean Corpuscular Volume 86, Mean Corpuscular Hemoglobin 28.1, Mean Corpuscular Hemoglobin Concent 32.8, Red Cell Distribution Width 13.3, Platelet Count 191, Mean Platelet Volume 7.2, Neutrophils (%) (Auto) 45.8, Lymphocytes (%) (Auto) 44.9, Monocytes (%) (Auto) 7.6, Eosinophils (%) (Auto) 1.0, Basophils (%) (Auto ) 0.7, Sodium Level 137, Potassium Level 3.4L, Chloride Level 99, Carbon Dioxide Level 32, Anion Gap 7, Blood Urea Nitrogen 7, Creatinine 0.7, Estimat Glomerular Filtration Rate , Glucose Level 122H, Calcium Level 9.0, Magnesium Level 1.8 Height (Feet): 5 Height (Inches): 6.00 Weight (Pounds): 190 SANTOS LINDA Mar 28, 2017 07:28
--- NOTE | 2017-03-28 07:36 | General Progress Note ---
Subjective Allergies: Coded Allergies: No Known Allergies (Unverified , 05/28/12) Objective Last 24 Hour Vital Signs Date Time Temp Pulse Resp B/P (MAP) Pulse Ox O2 Delivery O2 Flow Rate FiO2 03/28/17 04:25 97.3 53 20 116/60 96 Room Air 03/28/17 04:00 48 03/28/17 02:34 47 03/28/17 00:10 97.0 51 20 124/58 95 Room Air 03/27/17 22:07 57 126/73 03/27/17 20:00 97.5 57 20 126/73 94 Room Air 03/27/17 20:00 47 03/27/17 16:00 56 03/27/17 16:00 97.7 52 18 130/72 94 Room Air 03/27/17 12:00 52 03/27/17 12:00 96.8 54 19 146/75 97 Room Air 03/27/17 09:20 74 130/75 03/27/17 09:19 130/75 03/27/17 09:19 74 130/75 03/27/17 08:00 64 03/27/17 08:00 97.1 74 18 130/75 97 Room Air Laboratory Tests 03/27/17 07:35: White Blood Count 8.6, Red Blood Count 5.41H, Hemoglobin 15.2, Hematocrit 46.4, Mean Corpuscular Volume 86, Mean Corpuscular Hemoglobin 28.1, Mean Corpuscular Hemoglobin Concent 32.8, Red Cell Distribution Width 13.3, Platelet Count 191, Mean Platelet Volume 7.2, Neutrophils (%) (Auto) 45.8, Lymphocytes (%) (Auto) 44.9, Monocytes (%) (Auto) 7.6, Eosinophils (%) (Auto) 1.0, Basophils (%) (Auto ) 0.7, Sodium Level 137, Potassium Level 3.4L, Chloride Level 99, Carbon Dioxide Level 32, Anion Gap 7, Blood Urea Nitrogen 7, Creatinine 0.7, Estimat Glomerular Filtration Rate , Glucose Level 122H, Calcium Level 9.0, Magnesium Level 1.8 Height (Feet): 5 Height (Inches): 6.00 Weight (Pounds): 190 General Appearance: no apparent distress, alert EENT: PERRL/EOMI, normal ENT inspection, TMs normal, pharynx normal Neck: non-tender, supple Cardiovascular: normal rate, regular rhythm, no JVD, bradycardia Respiratory/Chest: lungs clear, no respiratory distress Abdomen: soft, no organomegaly, no mass Extremities: non-tender, normal inspection Edema: no edema noted Arm (L), no edema noted Arm (R), no edema noted Leg (L), no edema noted Leg (R), no edema noted Pedal (L), no edema noted Pedal (R), no edema noted Generalized 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 No chest paim or palpitation.Stable to be dischaege home today.Elijah red f/up pt. SANTOS LINDA Mar 28, 2017 07:36
[2017-03-28 08:27] VITALS: BP 152/67
[2017-03-28 09:57] VITALS: BP 112/59
[2017-03-28] MEDS: Magnesium Citrate Liq Btl ORAL SCH (10:00)
[2017-03-28] MEDS: Irbesartan 150mg tablet ORAL SCH (10:00)
[2017-03-28] MEDS: Metoprolol Tartrate 50mg tab ORAL SCH (10:00)
[2017-03-28 12:30] VITALS: BP 150/65
[2017-03-28] MEDS: cefTRIAXone 1 GM in D5W 55 ML IVPB SCH ×2 (14:00→14:41)
[2017-03-28] MEDS ORDERED: Tubing IV Secondary IV ONE ×2 (15:44)
[2017-03-28] MEDS ORDERED: NS 500ML ONE (15:44)
--- NOTE | 2017-03-28 18:26 | Discharge Summary ---
Discharge Summary Hospital Course Date of Admission Mar 25, 2017 at 13:30 Date of Discharge Mar 28, 2017 at 15:45 Admitting Diagnosis palpitations, generalized weakness, left pleural HPI Carmen Gutierrez is a 87 year old female who was admitted on Mar 25, 2017 at 13: 30 for Palpitations, Generalized Weakness, Left Pleural Hospital Course [id number] Discharge Discharge Disposition Patient was discharged to Home with Home Health(06) Discharge Diagnoses: Elisa Crenshaw NP Mar 28, 2017 18:26
--- NOTE | 2017-03-29 05:45 | Discharge Summary 2 SIG ---
DATE OF ADMISSION: 03/25/2017 DATE OF DISCHARGE: 03/28/2017 SENIOR COMMUNICATIONS ENGINEER: Walter Acosta M.D. BRIEF HOSPITAL COURSE: The patient is an 87-year-old female, who was brought to the emergency room at [facility] complaining of general fatigue and severe palpitations with accompanying chest discomfort. She has chronic atrial fibrillation and on evaluation at ED, she was found to have elevation of troponin level and urinary tract infection. Blood work done at ED showed leukocytosis, WBC was 11, urine WBC 2 to 4 with 1+ leukocyte esterase, and negative nitrite. EKG showed frequent PVCs and bigeminy. Dr. Acosta was consulted. The patient has atrial fibrillation and is on amiodarone and Xarelto. She has paroxysmal atrial fibrillation currently in sinus rhythm. There was a slight elevation in troponin level, which could be secondary to ventricular premature complexes in the form of bigeminy. Cardiac monitors were monitored. The patient has possible demand ischemia/non-ST elevated OK. However, she is chest pain free. A 12-lead EKG did not show any ST to T-wave changes. She was given metoprolol and losartan and was given Xarelto. She was eventually discharged home with home health under Dr. Cruz. FINAL DIAGNOSES: 1. Paroxysmal atrial fibrillation, currently in sinus rhythm. 2. Ventricular premature complexes in bigeminy form. 3. Slight elevation of troponin I level possible demand ischemia/non-ST elevated myocardial infarction. DISPOSITION: The patient was discharged home with home health. DISCHARGE MEDICATIONS: Refer to medication list. DISCHARGE INSTRUCTIONS: Follow up with Dr. Cruz as an outpatient. Trista Velasquez M.D. I have been assigned to dictate discharge summary on this account and I was not involved in the patient's management. Elisa Crenshaw N.P. DR: DELMIS JOB#: [id number] CC:
--- NOTE | 2017-03-29 17:15 | Discharge Summary ---
DATE OF ADMISSION: 03/25/2017 DATE OF DISCHARGE: 03/28/2017 NOTE: POOR AUDIO QUALITY ADMISSION DIAGNOSES: 1. Paroxysmal atrial fibrillation. 2. Hypertension. 3. Diabetes mellitus. 4. Varicose veins, lower extremities. 5. Degenerative joint disease, knee. DISCHARGE DIAGNOSES: 1. Paroxysmal atrial fibrillation. 2. Hypertension. 3. Diabetes mellitus. 4. Varicose veins, lower extremities. 5. Degenerative joint disease, knee. 6. Hyponatremia. 7. Hypomagnesemia. 8. Possible ischemic heart disease. CONSULTANTS: Walter Wray M.D., educational coordinator. PROCEDURE: A 2D echo. HISTORY AND HOSPITAL COURSE: The patient is an 87-year-old female, who was admitted by emergency room complaining of chest discomfort and palpitation. She was admitted to monitored bed and was in paroxysmal atrial fibrillation. The patient's medication from home includes valsartan, 2.5 mg, metformin, levothyroxine 0.5 mg daily, and MiraLAX for constipation. During the hospital stay, the patient was in sinus rhythm, bradycardia of about 50. Troponin level was elevated, which was 0.136. The patient's blood pressure controlled with Avapro 150 mg daily. The patient ambulates. Sodium on discharge 137, potassium 3.4, and magnesium 1.9. The patient discharged home with followup visit with Dr. Santa Cruz and [facility] home visiting nurses arranged by Dr. Santa Cruz. Prognosis is guarded. Diet as tolerated. Hold diuretic for future recommendation. I will not follow up the patient after discharge and recommendation to see Dr. Cruz in one week. Trista Velasquez M.D. DR: Tad JOB#: [id number] CC:
--- NOTE | 2017-03-31 00:09 | Cardiology Report ---
APPROVED REPORT EXAM: Two-dimensional and M-mode echocardiogram with Doppler and color Doppler. INDICATION SOB M-Mode DIMENSIONS IVSd0.9 (0.7-1.1cm)Left Atrium (MM)3.1 (1.6-4.0cm) LVDd4.3 (3.5-5.6cm)Aortic Root3.5 (2.0-3.7cm) PWd0.9 (0.7-1.1cm)Aortic Cusp Exc.1.9 (1.5-2.0cm) IVSs1.7 cm LVDs2.8 (2.5-4.0cm) PWs1.3 cm Normal left ventricular chamber size, systolic function and wall motion. Left ventricular ejection fraction estimated to be 60 %. No evidence of left ventricular hypertrophy . No evidence of pericardial effusion All other cardiac chamber size are within normal. Focal aortic valve sclerosis with adequate cusp excursion. Thickened mitral valve leaflets with normal excursion. Mitral annulus and aortic root calcification. Normal Pulmonic valve structure. Normal tricuspid valve structure. IVC at 2.0 cm with physiologic collapse. A color flow and spectral Doppler study was performed and revealed: Mild aortic regurgitation. Mild mitral regurgitation. Mitral diastolic velocities suggest reduced left ventricular relaxation c/w mild LV diastolic dysfunction (Grade I ). Mild tricuspid regurgitation. Tricuspid systolic velocities suggests peak right ventricular systolic pressure of 30 mmHg. No Pulmonic regurgitation present.
--- NOTE | 2017-03-31 00:27 | Cardiology Report ---
APPROVED REPORT EKG Measurement Heart [id number] CO [id number] Sinus bradycardia with occasional premature ventricular complexes Nonspecific ST and T wave abnormality Abnormal ECG
--- NOTE | 2017-03-31 00:31 | Cardiology Report ---
APPROVED REPORT EKG Measurement Heart [id number] Sinus rhythm with frequent premature ventricular complexes in a pattern of bigeminy Nonspecific ST and T wave abnormality Abnormal ECG
== END 2017-03-28 15:45 | disposition home health service (06) | DRG 281 ==
LOC: EDBD 11:39 → EMR 13:19 → 2W 13:30 → EDBEDREQ 14:07 → 2W 15:11 → 2E 22:30
DX: I48.0 Paroxysmal atrial fibrillation (principal); I21.4 Non-ST elevation (NSTEMI) myocardial infarction; E87.1 Hypo-osmolality and hyponatremia; I24.8 Other forms of acute ischemic heart disease; E83.42 Hypomagnesemia; N39.0 Urinary tract infection, site not specified; E11.9 Type 2 diabetes mellitus without complications; Z79.01 Long term (current) use of anticoagulants; R00.8 Other abnormalities of heart beat; I49.3 Ventricular premature depolarization; I10 Essential (primary) hypertension; I83.93 Asymptomatic varicose veins of bilateral lower extremities; M17.10 Unilateral primary osteoarthritis, unspecified knee; E03.9 Hypothyroidism, unspecified; K59.00 Constipation, unspecified
CPT/HCPCS: 36415; 71010; 80048; 80053; 80162; 81003; 82962; 83690; 83735; 84295; 84484; 85025; 85610; 85730; 86710; 86850; 86900; 86901; 93005; 93306; 99285; J1815